=== PATIENT | female | born 1980 | race Caucasian/White ===

== ENCOUNTER 2017-09-12 13:44 | Emergency (ER) | payer OTHER ==
[~2017-09-12] VITALS: Ht 152.4 cm; Wt 60.0 kg
[~2017-09-12 13:44] MED LIST: ALBU8I INH; DIPH50TA PO; EPIP0.3I IM; FEXO180 PO; PRED-1 PO; RANI150 PO; TOPI1CAP PO; ZOLP1TAB32 PO; [UNRECOGNIZED DRUG - CODE] NEB
[2017-09-12 13:52] VITALS: BP 151/99; PULSE 128; RESP 26; TEMP 100.3; O2SAT 96
[2017-09-12 14:11] VITALS: BP 139/88; PULSE 165; RESP 28; O2SAT 98
[2017-09-12] MEDS ORDERED: diphenhydrAMINE HCL 50 MG/ML VIAL IV PUSH ONE (14:15)
[2017-09-12] MEDS ORDERED: PROCHLORPERAZINE INJ 10 MG/2 ML VIAL IV PUSH ONE (14:15)
[2017-09-12] MEDS ORDERED: methylPREDNISolone SOD SUCC 125 MG/2 ML VIAL IV PUSH ONE (14:15)
[2017-09-12] MEDS ORDERED: FEXO15TA PO (14:19)
[2017-09-12] MEDS ORDERED: ZANT150T2 PO (14:19)
[2017-09-12] MEDS ORDERED: KETO50 PO (14:19)
--- NOTE | 2017-09-12 14:31 | PD ---
HPI Chief Complaint: Allergic/Adverse Reaction Time Seen by Provider: 13:55 Travel History International Travel<30 days: No Contact w/Intl Traveler<30days: No Traveled to known affect area: No History of Present Illness HPI This is a 37-year-old female with a history of mastocytosis, mast cell disorder , who presents today with complaints of shortness of breath and nausea. Patient states that she tried her home remedy medications including EpiPen however she still short of breath and wheezing. The patient has multiple allergies to multiple medications. She states normally when she has to come to the hospital she gets IV steroids and Benadryl. There are no other complaints at the time of my examination. PFSH Past Medical History Hx Anticoagulant Therapy: No Autoimmune Disease: No Blood Disorders: No Anxiety: No Depression: Yes Heart Rhythm Problems: No Cancer: No Cardiovascular Problems: No High Cholesterol: No Chemotherapy: No Chest Pain: No Congestive Heart Failure: No Cerebrovascular Accident: No Diabetes: No Diminished Hearing: No Endocrine: No Gastrointestinal Disorders: No Genitourinary: No Hypertension: No Immune Disorder: Yes (MAST cell disorder ) Implanted Vascular Access Dvce: No Musculoskeletal: No Neurologic: Yes (migraines ) Psychiatric: No Reproductive: Yes (endometrosis ) Respiratory: No Immunizations Current: Yes Migraines: Yes Radiation Therapy: No Sickle Cell Disease: No Thyroid Disease: No Influenza Vaccination: Yes ?: Not LMP: 08/24/17 Past Surgical History Abdominal Surgery: Yes (LAP FOR ENDOMETRIOSIS X 4-5 LAST IN 07/30) AICD: No Arteriovenous Shunt: No Cardiac Surgery: No Ear Surgery: No Endocrine Surgery: No Eye Surgery: No Gynecologic Surgery: Yes (BREAST AUGMENTATION 2002, MULTIPLE LAPROSCOPIES) Hysterectomy: No Insulin Pump: No Joint Replacement: No Neurologic Surgery: No Oral Surgery: No Pacemaker: No Thoracic Surgery: No Tonsillectomy: Yes (WITH ADENOIDECTOMY) Other Surgery: Yes Social History Alcohol Use: No Tobacco Use: No Substance Use: No Allergies-Medications (Allergen,Severity, Reaction): Coded Allergies: codeine (Unverified Allergy, Severe, JITTERY, 09/12/17) diatrizoate meglumine (Unverified Allergy, Severe, Hives, 09/12/17) diclofenac (Unverified Allergy, Severe, 09/12/17) "FLU-LIKE FEELING" etodolac (Unverified Allergy, Severe, 09/12/17) "FLU-LIKE FEELING" flurbiprofen (Unverified Allergy, Severe, 09/12/17) "FLU-LIKE FEELING" gadobenic acid (Unverified Allergy, Severe, Hives, 09/12/17) gadodiamide (Unverified Allergy, Severe, Hives, 09/12/17) gadoteridol (Unverified Allergy, Severe, Hives, 09/12/17) hydromorphone (Unverified Allergy, Severe, Anaphylaxis, 09/12/17) ibuprofen (Unverified Allergy, Severe, 09/12/17) "FLU-LIKE FEELING" indomethacin (Unverified Allergy, Severe, 09/12/17) "FLU-LIKE FEELING" iodixanol (Unverified Allergy, Severe, Hives, 09/12/17) iohexol (Unverified Allergy, Severe, Hives, 09/12/17) ketoprofen (Unverified Allergy, Severe, 09/12/17) "FLU-LIKE FEELING" ketorolac (Unverified Allergy, Severe, 09/12/17) "FLU-LIKE FEELING" levofloxacin (Unverified Allergy, Severe, Migraine, 09/12/17) morphine (Unverified Allergy, Severe, Anaphylaxis, 09/12/17) naproxen (Unverified Allergy, Severe, 09/12/17) "FLU-LIKE FEELING" oxaprozin (Unverified Allergy, Severe, 09/12/17) "FLU-LIKE FEELING" Sulfa (Sulfonamide Antibiotics) (Unverified Allergy, Intermediate, RASH, ) shellfish derived (Unverified Allergy, Intermediate, Anaphylaxis, 09/12/17) PT STATED AFTER SHE RETURNED FROM CT THAT SHE HAD A RASH STARTING. WHEN QUESTIONED AGAIN ABOUT ALLERGIES- PT STATED THAT SHE WAS ALLERGIC TO SHELLFISH. BENADRYL WAS ORDERED. Reported Meds & Prescriptions Reported Meds & Active Scripts Active Reported Ketoprofen 50 Mg Cap 2 Mg PO QID Hanny Allergy (Fexofenadine HCl) 180 Mg Tab 180 Mg PO BID Zantac (Ranitidine HCl) 150 Mg Tab 150 Mg PO BID Review of Systems Except as stated in HPI: all other systems reviewed are Neg HENT: No: Headaches, Lightheadedness, Neck Pain Cardiovascular: Positive: Palpitations, No: Chest Pain or Discomfort Respiratory: Positive: Shortness of Breath, Wheezing, No: Cough Gastrointestinal: Positive: Nausea, Vomiting, No: Diarrhea, Abdominal Pain Genitourinary: No: Frequency, Dysuria Musculoskeletal: No: Weakness, Pain Skin: Positive Itching, No Hives Neurologic: No: Weakness, Headache, Change in Mentation, Slurred Speech Physical Exam Narrative GENERAL: Well-developed well-nourished female in moderate respiratory distress. SKIN: Focused skin assessment warm/dry. HEAD: Atraumatic. Normocephalic. EYES: No scleral icterus. No injection or drainage. ENT: No nasal bleeding or discharge. Mucous membranes pink and moist. NECK: Trachea midline. Supple. CARDIOVASCULAR: Regular rate and rhythm. No murmur appreciated. RESPIRATORY: Diffuse expiratory wheezing in the bilateral lungs in all 4 lung pires. No rales appreciated. GASTROINTESTINAL: Abdomen soft, non-tender, nondistended. MUSCULOSKELETAL: No obvious deformities. No clubbing. No cyanosis. No edema. NEUROLOGICAL: Awake and alert. No obvious cranial nerve deficits. Motor grossly within normal limits. Normal speech. Data Data Last Documented VS Vital Signs Date Time Temp Pulse Resp B/P (MAP) Pulse Ox O2 Delivery O2 Flow Rate FiO2 09/12/17 15:32 87 18 112/64 (80) 100 Room Air 09/12/17 13:52 100.3 Orders Orders Methylprednisolone So Succ Inj (Solumedr (09/12/17 14:15) Prochlorperazine Inj (Compazine Inj) (09/12/17 14:15) Diphenhydramine Inj (Benadryl Inj) (09/12/17 14:15) MDM Medical Decision Making Medical Screen Exam Complete: Yes Emergency Medical Condition: Yes Differential Diagnosis Acute anaphylaxis versus mastoid cell release versus anxiety Narrative Course 37-year-old female with a history of mass cell disorder, who presents today with complaints of shortness of breath and nausea vomiting. Patient tried her home medications however they did not work. Patient was given 125 mg of Solu- Medrol followed by 50 mg of Benadryl and 10 mg of Compazine. She was given 1 L IV fluid. She states she feels much improved. She will be discharged with a Medrol Dosepak prescription. She will be instructed to take Zantac 150 mg twice daily and Benadryl 50 mg every 6 hours for the next 2-3 days. She instructed to return as needed. She is also instructed to follow-up with her primary care physician. Diagnosis Primary Impression: Mast cell disorder Additional Impression: Nausea & vomiting Additional Instructions: Zantac 150 twice daily. Benadryl 50 mg every 6-8 hours 2-3 days. Return as needed. Med/Other Pt SpecificInfo: Prescription(s) given Scripts Methylprednisolone Dosepak (Medrol Dosepak) 4 Mg Dspk 4 MG PO DIRECTED, #1 DSPK 0 Refills Per Pharmacist direction Prov: Marcial Kumari MD 09/12/17 Disposition: 01 DISCHARGE HOME Condition: Stable Marcial Kumari MD Sep 12, 2017 14:31
[2017-09-12 15:32] VITALS: BP 112/64; PULSE 87; RESP 18; O2SAT 100
[2017-09-12] MEDS ORDERED: MEDR4PAK PO (15:38)
== END 2017-09-12 16:29 | disposition home or self-care (01) ==
LOC: NEPC 13:44
DX: D47.01 Cutaneous mastocytosis (principal); R11.2 Nausea with vomiting, unspecified; R06.02 Shortness of breath
CPT/HCPCS: 96374; 96375; 99284; J0780; J1200; J2930